=== PATIENT | female | born 1950 | race Caucasian/White ===

== ENCOUNTER 2022-05-21 07:58 | Day surgery (SDC) | payer OTHER ==
[~2022-05-21] VITALS: Ht 172.7 cm; Wt 101.2 kg
[2022-05-21] MEDS ORDERED: SIMETHICONE 40 MG/0.6 ML ML ONE (08:05)
[2022-05-21] MEDS: fentaNYL CITRATE/PF 100 MCG/2 ML AMP ONE ×2 (09:32→09:36)
[2022-05-21] MEDS ORDERED: BENZOCAINE 20% 0.5mL UD SPRAY MM ONE (09:32)
[2022-05-21] MEDS: MIDAZOLAM HCL 5 MG/5 ML VIAL ONE ×2 (09:32→09:36)
[2022-05-21 13:57] VITALS: BP_SYST 137
== END 2022-05-21 12:07 | disposition home or self-care (01) ==
LOC: SDS 07:58 → SMU 07:59 → SDS 12:07
PROVIDERS: ATTEND Internal Medicine
DX: K22.70 Barrett's esophagus without dysplasia (principal); K29.70 Gastritis, unspecified, without bleeding; Z20.822 Contact with and (suspected) exposure to COVID-19
CPT/HCPCS: 43239; 87426; 87081; 36415; 88305; 88312; 88313; G0378; J2250; J3010

== ENCOUNTER 2022-06-16 08:14 | Day surgery (SDC) | payer OTHER ==
[2022-06-16] MEDS ORDERED: MIDAZOLAM HCL 5 MG/5 ML VIAL ONE (09:17)
[2022-06-16] MEDS ORDERED: fentaNYL CITRATE/PF 100 MCG/2 ML AMP ONE (09:17)
[2022-06-16 15:37] VITALS: BP_SYST 156
== END 2022-06-16 11:10 | disposition home or self-care (01) ==
LOC: SDS 08:14 → SMU 08:40 → SDS 11:10
PROVIDERS: ATTEND Internal Medicine
DX: Z12.11 Encounter for screening for malignant neoplasm of colon (principal); Z86.010 Personal history of colon polyps; K64.8 Other hemorrhoids; Z79.899 Other long term (current) drug therapy; Z20.822 Contact with and (suspected) exposure to COVID-19
CPT/HCPCS: 45378; 87426; 36415; 99152; G0378; J2250; J3010

== ENCOUNTER 2022-12-09 07:00 | Day surgery (SDC) | payer OTHER ==
[~2022-12-09] VITALS: Ht 172.7 cm; Wt 105.4 kg
[2022-12-09] MEDS ORDERED: fentaNYL CITRATE/PF 100 MCG/2 ML AMP ONE (07:37)
[2022-12-09] MEDS ORDERED: MIDAZOLAM HCL 5 MG/5 ML VIAL ONE (07:38)
[2022-12-09 11:29] VITALS: O2SAT 98
[2022-12-09 11:57] VITALS: BP_SYST 127; PULSE 48; RESP 17; TEMP 97.8
== END 2022-12-09 10:40 | disposition home or self-care (01) ==
LOC: SDS 07:00 → STU 07:02 → SDS 10:40
PROVIDERS: ATTEND Internal Medicine
DX: Z09 Encounter for follow-up examination after completed treatment for conditions other than malignant neoplasm (principal); K63.5 Polyp of colon; Z86.010 Personal history of colon polyps; K64.8 Other hemorrhoids; Z91.013 Allergy to seafood; Z87.891 Personal history of nicotine dependence; Z79.899 Other long term (current) drug therapy
CPT/HCPCS: 45380; 88305; 99152; 99153; G0378; J2250; J3010